=== PATIENT | male | born 2000 | race Caucasian/White ===

== ENCOUNTER 2023-05-23 12:13 | Emergency (ER) | payer MEDICAID ==
[2023-05-23] MEDS: Sodium Chloride 0.9% 10 ML Syringe FLUSH PRN (12:25)
[2023-05-23] MEDS: Activated Charcoal/Sorbitol Susp 50 GM/240 ML Bottle PO SCH (12:25)
[2023-05-23] MEDS: LORazepam 2 MG/ML SDV IVPUSH SCH (12:30)
[2023-05-23 12:37] LABS: BASOPHILS ABSOLUTE AUTO 0.02 K/uL (0.02-0.10); BASOPHILS PERCENT AUTO 0.2 % (0.0-0.5); EOSINOPHILS ABSOLUTE AUTO 0.05 K/uL (0.04-0.40); EOSINOPHILS PERCENT AUTO 0.5 % (1.0-5.0); HEMATOCRIT 42.9 % (40.0-54.0); HEMOGLOBIN 16.5 g/dL (13.0-18.0); LYMPHOCYTES ABSOLUTE AUTO 2.49 K/uL (1.50-4.00); MEAN CORPUSCULAR HEMOGLOBIN 29.5 pg (27.0-32.0); MEAN CORPUSCULAR HGB CONC 38.5 g/dL (31.0-35.0); MEAN CORPUSCULAR VOLUME 77 fL (76-96); MEAN PLATELET VOLUME 8.6 fL (6.0-10.0); MONOCYTES ABSOLUTE AUTO 0.64 K/uL (0.20-0.80); MONOCYTES PERCENT AUTO 5.9 % (3.0-10.0); NEUTROPHILS ABSOLUTE AUTO 7.63 K/uL (2.00-7.50); NEUTROPHILS PERCENT AUTO 70.4 % (45.0-70.0); PLATELET COUNT,PLT 294 K/uL (150-400); RED BLOOD CELL COUNT 5.59 M/uL (4.50-6.50); RED CELL DISTRIBUTION WIDTH 12.5 % (11.0-16.0); WHITE BLOOD CELL COUNT,WBC 10.8 K/uL (4.0-11.0)
[2023-05-23 12:55] LABS: A/G RATIO 1.5 (0.8-2.0); ALBUMIN 4.6 g/dL (3.4-5.0); BILIRUBIN TOTAL 0.7 mg/dL (0.0-1.0); CALCIUM 9.3 mg/dL (8.5-10.1); CARBON DIOXIDE,CO2 25.7 mmol/L (21.0-32.0); CREATININE 1.34 mg/dL (0.70-1.30); EST CRCL DRUG DOSING (CG) 91.32 mL/min; PROTEIN TOTAL,TP 7.7 g/dL (6.4-8.2)
[2023-05-23 12:57] LABS: ANION GAP 18.3 mmol/L (5.0-15.0)
[2023-05-23 14:50] LABS: AMPHETAMINES SCREEN, URINE POSITIVE (NEGATIVE)
[2023-05-23 14:51] LABS: BARBITURATE SCREEN,URINE NEGATIVE (NEGATIVE); BENZODIAZEPINES SCREEN,URINE NEGATIVE (NEGATIVE); METHADONE SCREEN, URINE NEGATIVE (NEGATIVE); METHAMPHETAMINES SCREEN, URINE POSITIVE (NEGATIVE); OXYCODONE SCREEN,URINE NEGATIVE (NEGATIVE); THC SCREEN,URINE 50 NG/ML NEGATIVE (NEGATIVE)
== END 2023-05-23 15:50 ==
LOC: LB.ED 12:13
DX: F15.10 Other stimulant abuse, uncomplicated (principal); Z79.899 Other long term (current) drug therapy
CPT/HCPCS: 36415; 80053; 80307; 85025; 96374; 99283; J2060; J3490; 99284